=== PATIENT | male | born 1940 | race Caucasian/White ===

== ENCOUNTER 2017-09-14 08:51 | Day surgery (SDC) | payer MEDICARE ==
[2017-09-13 16:36] LABS: BASOPHILS # (AUTO) 0.2 X10'3 (0-0.2); BASOPHILS % (AUTO) 1.7 % (0-1); EOSINOPHILS # (AUTO) 0.2 X10'3 (0-0.9); EOSINOPHILS % (AUTO) 2.3 % (0-6); HEMATOCRIT 37.4 % (42.0-52.0); HEMOGLOBIN 13.4 g/dl (14.0-17.9); LYMPHOCYTES # (AUTO) 2.2 X10'3 (1.1-4.8); LYMPHOCYTES % (AUTO) 25.1 % (21-51); MEAN CORPUSCULAR HEMOGLOBIN 35.1 PG (27.0-31.0); MEAN CORPUSCULAR HGB CONC 35.8 % (33.0-36.5); MEAN PLATELET VOLUME 8.6 FL (7.4-10.4); MONOCYTES # (AUTO) 0.9 X10'3 (0-0.9); MONOCYTES % (AUTO) 10.6 % (2-12); NEUTROPHILS # (AUTO) 5.3 X10'3 (1.8-7.7); NEUTROPHILS % (AUTO) 60.3 % (42-75); PLATELET COUNT 286 X10'3 (140-440); RED BLOOD COUNT 3.82 X10'6 (4.70-6.10); RED CELL DISTRIBUTION WIDTH 13.3 % (11.5-14.5); WHITE BLOOD COUNT 8.7 X10'3 (4.5-11.0)
[2017-09-13 16:51] LABS: INR 1.8 INR; PARTIAL THROMBOPLASTIN TIME 33 SECONDS (22-32); PROTHROMBIN TIME 17.8 SECONDS (9.0-12.0)
[2017-09-13 16:55] LABS: ALBUMIN 3.6 G/DL (3.4-5.0); ANION GAP 9 (8-16); BLOOD UREA NITROGEN 17 MG/DL (7-18); BUN/CREATININE RATIO 15.5 (5.4-32.0); CALCIUM 8.6 MG/DL (8.5-10.1); CHLORIDE 104 MMOL/L (99-107); POTASSIUM 3.6 MMOL/L (3.5-5.1); SODIUM 143 MMOL/L (135-145); TOTAL CARBON DIOXIDE 29.9 MMOL/L (24-32); eGFR 65 ML/MIN
[2017-09-13 16:56] LABS: GLUCOSE 103 MG/DL (70-104)
[2017-09-14] VITALS (8 sets, daily range): BP systolic 126–146; BP diastolic 59–80
[~2017-09-14] VITALS: Ht 175.3 cm; Wt 111.5 kg
[2017-09-14] MEDS ORDERED: clindamycin 600mg/D5W 50ml 50 ML IV ONE ×2 (09:20→13:53)
[2017-09-14] MEDS ORDERED: METF500T PO (09:56)
[2017-09-14] MEDS ORDERED: LOVA40TA2 PO (09:56)
[2017-09-14] MEDS ORDERED: BIMA2.5D OP (09:56)
[2017-09-14] MEDS ORDERED: FLAX100032 PO (09:56)
[2017-09-14] MEDS ORDERED: CARV12.5 PO (09:56)
[2017-09-14] MEDS ORDERED: MULT-38 PO (09:56)
[2017-09-14] MEDS ORDERED: MYCOL15O TP (09:56)
[2017-09-14] MEDS ORDERED: BRIM5DRO2 OP (09:56)
[2017-09-14] MEDS ORDERED: LOSA1TAB41 PO (09:56)
[2017-09-14] MEDS ORDERED: GLUC100017 PO (09:56)
[2017-09-14] MEDS ORDERED: COU3T PO (09:56)
[2017-09-14] MEDS ORDERED: ZOL50T PO (09:56)
[2017-09-14] MEDS ORDERED: AMLO5TAB PO (09:56)
[2017-09-14] MEDS ORDERED: VITA1TAB20 PO (09:56)
[2017-09-14] MEDS ORDERED: CHOL100046 PO (09:56)
[2017-09-14] MEDS ORDERED: phytonadione inj. 5 MG in normal saline 100ml IV soln 99.5 ML IV ONE (10:40)
[2017-09-14] MEDS ORDERED: clindamycin phosphate 150mg/ml inj. ONE ×2 (11:09→13:53)
[2017-09-14] MEDS ORDERED: midazolam 2 mg/2 ml injection ONE ×2 (11:09→14:03)
[2017-09-14] MEDS ORDERED: clindamycin 600mg/D5W 50ml 0 ML IV ONE (11:09)
[2017-09-14] MEDS ORDERED: fentaNYL/PF 50MCG/1 ML 2ML syringe ONE ×2 (11:09→14:03)
[2017-09-14 11:19] LABS: INR 1.5 INR; PARTIAL THROMBOPLASTIN TIME 30 SECONDS (22-32)
[2017-09-14 12:36] LABS: INR 1.4 INR; PARTIAL THROMBOPLASTIN TIME 30 SECONDS (22-32); PROTHROMBIN TIME 14.7 SECONDS (9.0-12.0)
[2017-09-14] MEDS ORDERED: LIDOcaine 1.5% w/epinephrine 1:200,000 5ml ampul ONE ×2 (13:18→14:18)
[2017-09-14] MEDS ORDERED: ceFAZolin 1000mg inj ONE (13:19)
[2017-09-14] MEDS ORDERED: ceFAZolin 1GM/D5W- ADD-VANTAGE 50 ML IV ONE (13:19)
[2017-09-14] MEDS ORDERED: normal saline 1000ml 1,000 ML IV SCH (15:40)
[2017-09-14] MEDS ORDERED: sod chloride 0.9% 10ml flush syringe IV SCH (16:00)
[2017-09-14] MEDS ORDERED: clindamycin 600mg/D5W 50ml IVPB IV SCH (18:00)
== END 2017-09-14 18:50 | disposition home or self-care (01) ==
LOC: SSTAY O 08:51
PROVIDERS: ATTEND Internal Medicine Cardiovascular Disease
DX: I49.5 Sick sinus syndrome (principal); I48.91 Unspecified atrial fibrillation; I10 Essential (primary) hypertension; I42.8 Other cardiomyopathies; E78.5 Hyperlipidemia, unspecified; G47.33 Obstructive sleep apnea (adult) (pediatric); M19.90 Unspecified osteoarthritis, unspecified site; E11.9 Type 2 diabetes mellitus without complications; F32.9 Major depressive disorder, single episode, unspecified; Z72.89 Other problems related to lifestyle; Z79.84 Long term (current) use of oral hypoglycemic drugs; Z79.01 Long term (current) use of anticoagulants; Z86.73 Personal history of transient ischemic attack (TIA), and cerebral infarction without residual deficits; Z88.0 Allergy status to penicillin; Z87.891 Personal history of nicotine dependence; Z90.89 Acquired absence of other organs; Z79.899 Other long term (current) drug therapy; Z98.890 Other specified postprocedural states
CPT/HCPCS: 33207; 36415; 71046; 80048; 82948; 85025; 85610; 85730; 99152; 99153; C1786; C1894; C1898; J0690; J2250; J3010; J3430; J3490; J7030; A4620

== ENCOUNTER 2022-10-01 08:30 | Day surgery (SDC) | payer MEDICARE ==
[2022-09-30 12:05] LABS: BASOPHILS # (AUTO) 0.1 X10'3 (0-0.2); BASOPHILS % (AUTO) 0.9 % (0-1); EOSINOPHILS # (AUTO) 0.2 X10'3 (0-0.9); HEMATOCRIT 40.8 % (42.0-52.0); HEMOGLOBIN 14.1 g/dl (14.0-17.9); LYMPHOCYTES # (AUTO) 1.9 X10'3 (1.1-4.8); LYMPHOCYTES % (AUTO) 21.9 % (21-51); MEAN CORPUSCULAR HEMOGLOBIN 34.7 PG (27.0-31.0); MEAN CORPUSCULAR HGB CONC 34.5 g/dL (33.0-36.5); MEAN CORPUSCULAR VOLUME 100.8 FL (78-98); MEAN PLATELET VOLUME 8.6 FL (7.4-10.4); MONOCYTES # (AUTO) 0.8 X10'3 (0-0.9); MONOCYTES % (AUTO) 9.7 % (2-12); NEUTROPHILS # (AUTO) 5.5 X10'3 (1.8-7.7); NEUTROPHILS % (AUTO) 65.5 % (42-75); PLATELET COUNT 293 X10'3 (140-440); RED BLOOD COUNT 4.05 X10'6 (4.70-6.10); WHITE BLOOD COUNT 8.5 X10'3 (4.5-11.0)
[2022-09-30 12:14] LABS: ALBUMIN 3.6 G/DL (3.4-5.0); ANION GAP 9 (8-16); BLOOD UREA NITROGEN 19 MG/DL (7-18); BUN/CREATININE RATIO 17.8 (10.0-20.0); CALCIUM 8.8 MG/DL (8.5-10.1); CHLORIDE 102 MMOL/L (99-107); CREATININE 1.07 MG/DL (0.60-1.10); POTASSIUM 3.5 MMOL/L (3.5-5.1); SODIUM 141 MMOL/L (135-145); TOTAL CARBON DIOXIDE 29.8 MMOL/L (24-32); eGFR 66 ML/MIN
[2022-09-30 12:15] LABS: GLUCOSE 138 MG/DL (70-104)
[2022-09-30 12:17] LABS: APTT 28 SECONDS (22-32)
[~2022-10-01] VITALS: Ht 175.3 cm; Wt 110.0 kg
[~2022-10-01 08:30] MED LIST: AMLO5TAB PO; BIMA2.5D OP; BRIM5DRO2 OP; CARV12.5 PO; CHOL100046 PO; COU3T PO; FLAX100032 PO; GLUC100017 PO; LOSA1TAB41 PO; LOVA40TA2 PO; METF500T PO; MULT-38 PO; MYCOL15O TP; SERT-153 PO; VITA1TAB20 PO
[2022-10-01] MEDS ORDERED: diphenhydrAMINE 25mg capsule PO PRN (08:55)
[2022-10-01] MEDS ORDERED: normal saline 1,000 ML IV SCH (08:55)
[2022-10-01] MEDS ORDERED: LORazepam 0.5 MG tablet PO PRN (08:55)
[2022-10-01] MEDS ORDERED: RIVA20TA PO (09:36)
[2022-10-01 11:00] VITALS: BP 122/56
== END 2022-10-01 13:53 | disposition home or self-care (01) ==
LOC: SSTAY O 08:30
PROVIDERS: ATTEND Internal Medicine Cardiovascular Disease
DX: I25.10 Atherosclerotic heart disease of native coronary artery without angina pectoris (principal); Z53.8 Procedure and treatment not carried out for other reasons; I10 Essential (primary) hypertension; I49.5 Sick sinus syndrome; I48.20 Chronic atrial fibrillation, unspecified; G47.33 Obstructive sleep apnea (adult) (pediatric); F32.A Depression, unspecified; E78.5 Hyperlipidemia, unspecified; Z95.0 Presence of cardiac pacemaker; Z79.84 Long term (current) use of oral hypoglycemic drugs; Z79.899 Other long term (current) drug therapy; Z86.73 Personal history of transient ischemic attack (TIA), and cerebral infarction without residual deficits; Z90.81 Acquired absence of spleen; Z87.891 Personal history of nicotine dependence; Z88.0 Allergy status to penicillin
CPT/HCPCS: 36415; 80048; 85025; 85610; 85730; 93005; J7030